=== PATIENT | male | born 1955 | race Caucasian/White ===

== ENCOUNTER → 2018-09-27 10:35 | Outpatient (CLI) | payer BC, SELFPAY ==
--- NOTE | 2018-09-27 11:00 | FL_ITS ---
FL barium swallow modified: 09/27/2018 11:00 AM CLINICAL HISTORY: Dysphasia ORDERING PHYSICIAN: Ady Andrews MD PATIENT AGE: 63 years Comparison: None TECHNIQUE: Patient administered varying consistencies of barium contrast, while viewed in lateral position under real-time fluoroscopy with cine recording. FLUOROSCOPY TIME: The study was performed in conjunction with speech pathologist. Please see that report & recommendations. FINDINGS: Patient was given varying consistencies of barium. There is a bone plate anteriorly at C4-C5. No vestibular penetration or tracheal aspiration. There is adequate bolus formation with no significant residual IMPRESSION: Unremarkable modified barium swallow Please see speech pathologist report and recommendations.
--- NOTE | 2018-09-27 11:45 | HMH.SLMBS2 ---
Speech & Language Evaluation Speech/Language Mod Barium Swallow Start: 09/27/18 11:28 Freq: once Status: Complete Protocol: Document 09/27/18 11:28 POOJA (Rec: 09/27/18 11:45 POOJA [id number]) MBS Recommendations Diet Dietary Recommendations Regular,Thin Liquids Referrals/Other Recommended Referrals GI Consult,ENT Consult Other Recommendations Mr. Gomez reports a persistent cough and frequently getting strangled when drinking and eating. He reports difficutly with cough and swallowing for 1.5 to 2 months. He will see pulmonology in [facility] tomorrow to assess breathing problems. He did not have any episodes of dysphagia duirng the MBS. It is recommended that Mr. Gomez follows up with his PCP and a possible referral to ENT and GI for further testing and assessment . Mod Barium Swallow Impressions Summary and Impressions Oral Phase Impression No Impairment (WFL) Pharyngeal Phase Impression No Impairment (WFL) Speech/Language MBS Assessment/Goals/Plan Assessment Date of Evaluation: 09/27/18 Evaluation Type Initial Certification Assessment/Problems Dysphagia Does Patient Qualify for Service No Qualify/Failure Comment No evidence of penetration or aspiration observed during MBS . All swallowing observed was WFL. Recommendations PHYSICIAN CERTIFICATION: The specified therapy services are required, authorized, and reviewed every 30 days. Diet Recommendations Normal Liquid Type Recommendations Normal/Thin Plan Pt/Guardian verbally ack understanding Yes of dx/prognosis/goals Pt/Guardian verbally ack understanding Yes of/consent to tx prog G -code Required No Education Instructions provided Patient was informed of results of MBS. Follow up with PCP with possible referral for further assessment and risk of vocal cord damage from persistant cough by ENT and GI to assess esophageal phase of swallow. Pt/Caregiver able to recall information Able to recall/restate Reinforcement needed No Mod Barium Swallow Setup Exam Setup Radiologist Al
== END ==
PROVIDERS: PCP Family Medicine; Visit Provider Family Medicine
DX: R13.14 Dysphagia, pharyngoesophageal phase (principal)
CPT/HCPCS: 70371; 92611